=== PATIENT | female | born 2000 | race Caucasian/White ===

== ENCOUNTER 2020-12-01 03:28 | Emergency (ER) | payer BC ==
[~2020-12-01] VITALS: Ht 167.6 cm; Wt 65.0 kg
--- NOTE | 2020-12-01 03:40 | NUR ---
OFFICER JOSE JUAN. [phone]
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
[2020-12-01 04:00] LABS: BASOPHILS % (AUTO) 2 % (0-1); EOSINOPHILS % (AUTO) 3 % (1-7); LYMPHOCYTES % (AUTO) 41 % (22-44); MEAN CORPUSCULAR HGB CONC 33.9 g/dL (32.4-35.8); MONOCYTES % (AUTO) 6 % (2-9); NEUTROPHILS % (AUTO) 49 % (42-75); PLATELET COUNT 209 x10^3/uL (130-400); RED BLOOD COUNT 4.45 x10^6/uL (3.82-5.3); RED CELL DISTRIBUTION WIDTH 13.5 % (9.6-15.2)
[2020-12-01 04:06] LABS: ALBUMIN 3.8 g/dL (3.4-5.0); ANION GAP 7 mmol/L (5-15); CALCIUM 8.3 mg/dL (8.5-10.1); CHLORIDE 113 mmol/L (98-107)
[2020-12-01 04:17] LABS: SALICYLATE LEVEL < 1.7 mg/dL (2.8-20.0)
--- NOTE | 2020-12-01 05:12 | NUR ---
REPORT RECEIVED FROM LEE GIL
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
--- NOTE | 2020-12-01 06:44 | NUR ---
REPORT TO CARLA GIL
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
--- NOTE | 2020-12-01 07:59 | NUR ---
RAIMUNDO here to interview pt.
--- NOTE | 2020-12-01 08:39 | NUR ---
SHADI RN: OFFICER MANJIT AT [facility], PROVIDED CASE #[id number] Addendum: 12/01/20 at 0841 by CARRIE CASE # [id number]
--- NOTE | 2020-12-01 08:49 | NUR ---
Report to JEFFERY Cohen
--- NOTE | 2020-12-01 09:02 | NUR ---
Pt ate breakfast, drinking water/coffee walks steady gait to bathroom and back. Pt is ready to be discharged with [facility] to [facility] exam. Pt is in agreement of this POC. Officer Rekha [phone]
[2020-12-01 09:13] VITALS: BP 135/78
--- NOTE | 2020-12-01 09:17 | NUR ---
DC with instruct, proper clothing to [facility] facility.
== END 2020-12-01 09:39 ==
LOC: EDBD 03:28 → ED 07:01
DX: F10.120 Alcohol abuse with intoxication, uncomplicated (principal); T76.21XA Adult sexual abuse, suspected, initial encounter; Y90.0 Blood alcohol level of less than 20 mg/100 ml
CPT/HCPCS: 36415; 80048; 80299; 80320; 80329; 82040; 84703; 85025; 99285; G0480